=== PATIENT | female | born 1985 | race African-American/Black ===

== ENCOUNTER 2017-08-24 19:37 | Emergency (ER) | payer OTHER ==
[~2017-08-24] VITALS: Ht 154.9 cm; Wt 73.5 kg
[~2017-08-24 19:37] MED LIST: IBUPROFEN800 MG PO; MOTRIN800 MG PO; NUVARING VAGIN1 EACH VG
[2017-08-24] MEDS ORDERED: NORCO 7.5/321 TABLET PO (21:38)
[2017-08-24] MEDS ORDERED: VALIUM5 MG PO (21:38)
[2017-08-24] MEDS ORDERED: MOTRIN800 MG PO (21:38)
[2017-08-24 21:46] VITALS: BP 139/74
== END 2017-08-24 21:47 | disposition home or self-care (01) ==
LOC: EME 19:37
DX: S29.011A Strain of muscle and tendon of front wall of thorax, initial encounter (principal); S20.219A Contusion of unspecified front wall of thorax, initial encounter; V43.52XA Car driver injured in collision with other type car in traffic accident, initial encounter
CPT/HCPCS: 71020; 71120; 99281; 99283